=== PATIENT | male | born 1995 | race Caucasian/White ===

== ENCOUNTER → 2016-06-28 | Day surgery (SDC) | payer OTHER | END | disposition home or self-care (01) | LOC: FAS 11:08 | DX: S50.851A Superficial foreign body of right forearm, initial encounter (principal); K21.9 Gastro-esophageal reflux disease without esophagitis; Z82.49 Family history of ischemic heart disease and other diseases of the circulatory system; Z83.3 Family history of diabetes mellitus; Z80.9 Family history of malignant neoplasm, unspecified | CPT/HCPCS: 73090; 88300; J0690; J1885; J2704 ==